=== PATIENT | male | born 1960 | race Caucasian/White ===

== ENCOUNTER 2021-01-07 18:20 | Inpatient (IN) | payer MEDICARE, MEDICAID ==
[~2021-01-07] VITALS: Ht 175.3 cm; Wt 77.1 kg
[~2021-01-07 18:20] MED LIST: ACETAZOLAMIDE250 MG PO; ASPIRIN EC81 MG PO; ATENOLOL100 MG PO; ATENOLOL25 MG PO; BACLOFEN20 MG PO; BUMEX 1MG TABLET1 MG PO; CARDIZEM60 MG PO; CLONIDINE HCL0.3 MG PO; CLOPIDOGREL75 MG PO; COZAAR100 MG PO; DIGITEK250 MCG PO; DIGOX125 MCG PO; ELIQUIS5 MG PO; ENTRESTO 24 MG1 EACH PO; FENOFIBRATE160 MG PO; FUROSEMIDE20 MG PO; HUMALOG 10100 UNITS/ SC; HUMULIN 70100 UNITS/ SC; HYDRALAZINE HCL50 MG PO; IMDUR ER TAB 6060 MG PO; LIPITOR TAB 2020 MG PO; MAG-OX 400 TAB400 MG PO; POTASSIUM CHLO10 ME1 PO; PRILOSEC OTC20 MG PO; ROBITUSSIN DM UD5 ML PO; VENTOLIN HFA 66.7 GM INH
[2021-01-08 00:22] LABS: HEMOGLOBIN 12.8 gm/dl (14.0-17.5); RED BLOOD COUNT 4.89 M/UL (4.20-5.50); WHITE BLOOD COUNT 10.4 K/UL (4.5-11.0)
[2021-01-08 00:43] LABS: BUN/CREATININE RATIO 26 (0-10)
[2021-01-08] MEDS ORDERED: ATENOLOL100 MG PO (12:36)
[2021-01-08] MEDS ORDERED: CLOPIDOGREL75 MG PO (12:37)
[2021-01-09 02:46] LABS: HEMOGLOBIN 11.5 gm/dl (14.0-17.5); WHITE BLOOD COUNT 9.2 K/UL (4.5-11.0)
[2021-01-09 02:47] LABS: RED BLOOD COUNT 4.38 M/UL (4.20-5.50)
[2021-01-09 13:34] LABS: HEMOGLOBIN 12.8 gm/dl (14.0-17.5); RED BLOOD COUNT 4.81 M/UL (4.20-5.50)
[2021-01-09 13:36] LABS: WHITE BLOOD COUNT 12.3 K/UL (4.5-11.0)
[2021-01-10 02:52] LABS: BUN/CREATININE RATIO 44 (0-10)
--- NOTE | 2021-01-10 23:58 | NUR ---
CALLED MD REGARDING DOBHOFF RESULTS AROUND 2199. MD AWARE THAT THE DOBHOFF IS AT THE PROXIMAL TIP OF THE STOMACH. MD WANTS TO ADVANCE AND THEN CONTINUE WITH PO MEDICATION. 2229 ATTEMPTED TO ADVANCE DOBHOFF AND COULD NOT, DUE TO RESISTANCE AND THE PATIENT WAS UNCOPERATIVE. I SPOKE TO SPOOL HAULER, WHO TOLD ME TO CALL AN ICU NURSE TO HELP ASSIST IN ADVANCING THE DOBHOFF. CALLED SEVERAL TIMES AND NO ONE COULD COME TO THE FLOOR. I ATTEMPTED ONCE MORE AND COULD NOT GET THE DOBHOFF TO ADVANCE DUE TO THE PREVIOUS ISSUE. I ALSO CALLED RADIOLOGY TO SEE HOW FAR I SHOULD ADVANCE THE DOBHOFF AND THEY INFORMED ME IT ALL DEPENDEDED ON WHAT THE MD WANTS
[2021-01-11 02:21] LABS: HEMOGLOBIN 11.9 gm/dl (14.0-17.5); RED BLOOD COUNT 4.58 M/UL (4.20-5.50)
[2021-01-11 02:26] LABS: WHITE BLOOD COUNT 6.6 K/UL (4.5-11.0)
[2021-01-11 02:49] LABS: BUN/CREATININE RATIO 35 (0-10)
[2021-01-15 05:04] LABS: RED BLOOD COUNT 5.32 M/UL (4.20-5.50); WHITE BLOOD COUNT 12.1 K/UL (4.5-11.0)
[2021-01-15 05:05] LABS: HEMOGLOBIN 14.1 gm/dl (14.0-17.5)
[2021-01-15 05:37] LABS: BUN/CREATININE RATIO 48 (0-10)
[2021-01-16 05:02] LABS: HEMOGLOBIN 13.9 gm/dl (14.0-17.5); RED BLOOD COUNT 5.26 M/UL (4.20-5.50); WHITE BLOOD COUNT 15.1 K/UL (4.5-11.0)
[2021-01-16 05:40] LABS: BUN/CREATININE RATIO 44 (0-10)
[2021-01-17 02:29] LABS: RED BLOOD COUNT 5.28 M/UL (4.20-5.50); WHITE BLOOD COUNT 13.4 K/UL (4.5-11.0)
[2021-01-17 02:50] LABS: BUN/CREATININE RATIO 39 (0-10)
[2021-01-18 04:15] LABS: HEMOGLOBIN 12.1 gm/dl (14.0-17.5)
[2021-01-18 04:31] LABS: RED BLOOD COUNT 4.74 M/UL (4.20-5.50); WHITE BLOOD COUNT 8.3 K/UL (4.5-11.0)
[2021-01-18 04:34] LABS: BUN/CREATININE RATIO 27 (0-10)
[2021-01-19] MEDS ORDERED: PLAVIX 75 MG TA75 MG PO (23:49)
[2021-01-19] MEDS ORDERED: BACLOFEN20 MG PO (23:49)
[2021-01-19] MEDS ORDERED: K-DUR TAB 10 M10 MEQ PO (23:50)
[2021-01-21 02:12] LABS: HEMOGLOBIN 11.6 gm/dl (14.0-17.5); RED BLOOD COUNT 4.37 M/UL (4.20-5.50); WHITE BLOOD COUNT 8.2 K/UL (4.5-11.0)
[2021-01-21 02:31] LABS: BUN/CREATININE RATIO 29 (0-10)
[2021-01-21] MEDS ORDERED: ELIQUIS 5 MG TAB5 MG PO (10:13)
[2021-01-21] MEDS ORDERED: ACETAMINOPHEN325 MG PO (10:13)
[2021-01-21] MEDS ORDERED: METOPROLOL SUCC25 MG PO (10:13)
--- NOTE | 2021-01-21 16:13 | NUR ---
01/21/21 1600 GUALBERTO CALLED AT [facility] AND INFORMED THAT PATIENT WOULD NOT BE TRANSFERRING THERE TODAY
[2021-01-23 05:53] LABS: HEMOGLOBIN 11.2 gm/dl (14.0-17.5); RED BLOOD COUNT 4.24 M/UL (4.20-5.50)
[2021-01-23 05:54] LABS: WHITE BLOOD COUNT 6.1 K/UL (4.5-11.0)
[2021-01-23 06:09] LABS: BUN/CREATININE RATIO 29 (0-10)
--- NOTE | 2021-01-23 14:33 | NUR ---
1300 REPORT CALLED TO [facility]. FOUZIA BURCIAGA, WILL BE THE NURSE GETTING THE PATIENT ONCE HE IS TRANSPORTED. EMS NOTIFIED AND STATED THAT IT WOULD BE A FEW HOURS.
== END 2021-01-23 17:06 | DRG 871 ==
LOC: PROG CARE 22:32 → CDU 22:32 → M/S 22:32 → PROG CARE 22:58 → M/S 01-19 06:17
PROVIDERS: Internal Medicine; ADMIT Internal Medicine Infectious Disease
DX: A41.02 Sepsis due to Methicillin resistant Staphylococcus aureus (principal); I50.23 Acute on chronic systolic (congestive) heart failure; G92 Toxic encephalopathy; R65.21 Severe sepsis with septic shock; J96.22 Acute and chronic respiratory failure with hypercapnia; J96.21 Acute and chronic respiratory failure with hypoxia; I48.21 Permanent atrial fibrillation; N17.9 Acute kidney failure, unspecified; L03.116 Cellulitis of left lower limb; L03.115 Cellulitis of right lower limb; I11.0 Hypertensive heart disease with heart failure; F19.10 Other psychoactive substance abuse, uncomplicated; Z20.822 Contact with and (suspected) exposure to COVID-19; I25.5 Ischemic cardiomyopathy; E11.9 Type 2 diabetes mellitus without complications; R00.0 Tachycardia, unspecified; J44.9 Chronic obstructive pulmonary disease, unspecified; I08.1 Rheumatic disorders of both mitral and tricuspid valves; F15.10 Other stimulant abuse, uncomplicated; I87.8 Other specified disorders of veins; I25.10 Atherosclerotic heart disease of native coronary artery without angina pectoris; Z95.1 Presence of aortocoronary bypass graft; Z79.01 Long term (current) use of anticoagulants; Z79.899 Other long term (current) drug therapy; Z86.73 Personal history of transient ischemic attack (TIA), and cerebral infarction without residual deficits; Z86.19 Personal history of other infectious and parasitic diseases
CPT/HCPCS: ECHO; 36415; 36600; 71045; 74018; 74230; 80048; 80053; 80202; 82140; 82550; 82553; 82803; 82962; 83605; 83735; 83880; 84100; 84132; 84484; 85025; 85027; 86140; 87040; 87086; 92526; 92610; 92611-GN; 93005; 93306; 94660; 94760; 97110; 97110-GP-CQ; 97116-GP-CQ; 97162; 97166; 97530; 97530-GP-CQ; A6212; C9113; J1160; J1335; J1650; J1940; J2543; J3370; J3475; J3480; J7070; P9047; U0002